=== PATIENT | female | born 1970 | race Caucasian/White ===

== ENCOUNTER 2017-10-21 08:02 | Observation (INO) | payer OTHER ==
[2017-10-21] MEDS ORDERED: NS 0.9% 1000 ML* 1,000 ML IV ONE (08:37)
[2017-10-21] MEDS ORDERED: Aspirin Low Dose CHEW TAB* 81 MG ONE (08:38)
[2017-10-21] MEDS ORDERED: Aspirin Low Dose CHEW TAB* 81 MG PO ONE ×2 (08:42)
[2017-10-21 08:55] LABS: ABS Basophils 0 10^3/ul (0-0.2); ABS Eosinophils 0.1 10^3/ul (0-0.6); ABS Lymphocytes 1.8 10^3/ul (1.0-4.8); ABS Monocytes 0.3 10^3/ul (0-0.8); ABS Neutrophils 3.5 10^3/ul (1.5-7.7); ABS Nucleated RBC 0 10^3/ul; Eosinophil % 1.2 % (0-6); Hematocrit 40 % (35-47); Hemoglobin 13.4 g/dl (12.0-16.0); Lymphocyte % 31.9 % (25-47); Mean Corpuscular HGB Conc 34 g/dl (31-36); Mean Corpuscular Hemoglobin 31 pg (27-31); Mean Corpuscular Volume 90 fL (80-97); Mean Platelet Volume 9 um3 (7.4-10.4); Nucleated Red Blood Cells % 0; Platelet Count 247 10^3/ul (150-450); Red Blood Count 4.37 10^6/ul (4.0-5.4); Red Cell Distribution Width 13 % (10.5-15); White Blood Count 5.7 10^3/ul (3.5-10.8)
[2017-10-21] MEDS ORDERED: Ibuprofen TAB* 400 MG PO ONE (09:09)
[2017-10-21 09:13] LABS: EGFR Non-African American 64.1 (>60)
[2017-10-21 09:16] LABS: INR 0.9 (0.77-1.02)
--- NOTE | 2017-10-21 09:47 | RAD ---
Indication: Chest pain. Single frontal view of the chest performed at 0858 hours was reviewed. Comparison is made with previous exam dated November 07, 2014. No mediastinal shift is noted. Heart is of normal size and configuration. Lung bridges appear clear. IMPRESSION: NO ACTIVE CARDIOPULMONARY DISEASE IS NOTED.
[2017-10-21] MEDS ORDERED: Ondansetron INJ* 2 MG/ML VIAL IV PRN (12:20)
[2017-10-21] MEDS ORDERED: Acetaminophen TAB* 325 MG PO PRN (12:20)
--- NOTE | 2017-10-21 12:56 | ED ---
Elizabeth Gerber Julia, scribed for Abel Frias on 10/21/17 at 1031 . HPI Chest Pain - HPI Summary HPI Summary: This patient is a 46 year old F presenting to [facility] accompanied by her mother with a chief complaint of intermittent left sided chest pain since 10/16/17 lasting between a few seconds to 30 minutes. Patient denies N/V/D, dizziness, SOB, and lower extremity edema. The patient rates the pain 5/10 in severity. Symptoms aggravated by movement. Symptoms unchanged by exertion. Patient denies a cardiac history. Her father had an HI at 58. - History of Current Complaint Chief Complaint: EDChestPainROMI Time Seen by Provider: 10/21/17 10:16 Hx Obtained From: Patient Onset/Duration: Started Days Ago Timing: Intermittent, Lasting Seconds, Lasting Minutes Pain Intensity: 5 Pain Scale Used: 0-10 Numeric Chest Pain Location: Left Anterior Aggravating Factor(s): Movement Associated Signs and Symptoms: Positive: Negative. Negative: Shortness of Breath, Lightheadedness, Diaphoresis, Nausea, Vomiting, Edema - Allergy/Home Medications Allergies/Adverse Reactions: Allergies Allergy/AdvReac Type Severity Reaction Status Date / Time Sulfa (Sulfonamide Allergy Hives Verified 10/21/17 08:11 Antibiotics) Home Medications: Home Medications ALPRAZolam TAB* [Xanax TAB*] 0.125 mg PO BID 10/21/17 [History Confirmed ] Latanoprost 0.005%* [Xalatan 0.005%*] 1 drop BOTH EYES QPM 10/21/17 [History Confirmed 10/21/17] Nadolol TAB* [Corgard TAB*] 60 mg PO DAILY 10/21/17 [History Confirmed 10/21/17] Topiramate TAB(*) [Topamax 100 mg tab] 100 mg PO BEDTIME 10/21/17 [History Confirmed 10/21/17] busPIRone TAB* [Buspar TAB *] 15 mg PO BID 10/21/17 [History Confirmed 10/21/17] PMH/Surg Hx/FS Hx/Imm Hx Endocrine/Hematology History: Denies: Hx Diabetes, Hx Thyroid Disease Cardiovascular History: Denies: Hx Hypertension Respiratory History: Denies: Hx Asthma, Hx Chronic Obstructive Pulmonary Disease (COPD), Other Respiratory Problems/Disorders GI History: Denies: Hx Ulcer Neurological History: Reports: Hx Migraine - Cancer History Hx Chemotherapy: No Hx Radiation Therapy: No Infectious Disease History: No Infectious Disease History: Denies: Hx Hepatitis, Hx Human Immunodeficiency Virus (HIV), Traveled Outside the [place] in Last 30 Days - Family History Known Family History: Positive: Cardiac Disease - HI - father at age 58 Family History: FHx of breast CA - grandmother - Social History Alcohol Use: None Substance Use Type: Reports: None Smoking Status (MU): Never Smoked Tobacco Review of Systems Negative: Skin Diaphoresis Positive: Chest Pain Negative: Shortness Of Breath Negative: Vomiting, Diarrhea, Nausea Negative: Edema All Other Systems Reviewed And Are Negative: Yes Physical Exam - Summary Physical Exam Summary: Appearance: Well appearing, no pain distress Skin: warm, dry, reflects adequate perfusion Head/face: normal Eyes: EOMI, [place] ENT: normal Neck: supple, non-tender Respiratory: CTA, breath sounds present Cardiovascular: RRR, pulses symmetrical Abdomen: non-tender, soft Bowel: present Musculoskeletal: normal, strength/ROM intact Neuro: normal, sensory motor intact, A&Ox3 Triage Information Reviewed: Yes Vital Signs On Initial Exam: Initial Vitals Temp Pulse Resp BP Pulse Ox 98.1 F 72 16 132/86 97 10/21/17 08:03 10/21/17 08:03 10/21/17 08:03 10/21/17 08:03 10/21/17 08:03 Vital Signs Reviewed: Yes Diagnostics - Vital Signs Vital Signs Temp Pulse Resp BP Pulse Ox 10/21/17 09:00 100 10/21/17 08:30 69 17 125/82 99 10/21/17 08:26 9 10/21/17 08:25 108/82 10/21/17 08:03 98.1 F 72 16 132/86 97 - Laboratory Lab Results: Lab Results 10/21/17 10/21/17 10/21/17 Range/Units 08:46 08:46 08:46 WBC 5.7 (3.5-10.8) 10^3/ul RBC 4.37 (4.0-5.4) 10^6/ul Hgb 13.4 (12.0-16.0) g/dl Hct 40 (35-47) % MCV 90 (80-97) fL MCH 31 (27-31) pg MCHC 34 (31-36) g/dl RDW 13 (10.5-15) % Plt Count 247 (150-450) 10^3/ul MPV 9 (7.4-10.4) um3 Neut % (Auto) 61.4 (38-83) % Lymph % (Auto) 31.9 (25-47) % Pitt % (Auto) 4.9 (1-9) % Eos % (Auto) 1.2 (0-6) % Baso % (Auto) 0.6 (0-2) % Absolute Neuts (auto) 3.5 (1.5-7.7) 10^3/ul Absolute Lymphs (auto) 1.8 (1.0-4.8) 10^3/ul Absolute Monos (auto) 0.3 (0-0.8) 10^3/ul Absolute Eos (auto) 0.1 (0-0.6) 10^3/ul Absolute Basos (auto) 0 (0-0.2) 10^3/ul Absolute Nucleated RBC 0 10^3/ul Nucleated RBC % 0 INR (Anticoag Therapy) 0.90 (0.77-1.02) APTT 34.1 (26.0-36.3) seconds D-Dimer, Quantitative 218 (Less Than 230) ng/mL Sodium (133-145) mmol/L Potassium (3.5-5.0) mmol/L Chloride (101-111) mmol/L Carbon Dioxide (22-32) mmol/L Anion Gap (2-11) mmol/L BUN (6-24) mg/dL Creatinine (0.51-0.95) mg/dL Est GFR ( Amer) (>60) Est GFR (Non-Af Amer) (>60) BUN/Creatinine Ratio (8-20) Glucose (70-100) mg/dL Lactic Acid (0.5-2.0) mmol/L Calcium (8.6-10.3) mg/dL Magnesium (1.9-2.7) mg/dL Total Bilirubin (0.2-1.0) mg/dL AST (13-39) U/L ALT (7-52) U/L Alkaline Phosphatase (34-104) U/L Total Creatine Kinase (10-223) U/L CK-MB (CK-2) (0.6-6.3) ng/mL Troponin I (<0.04) ng/mL C-Reactive Protein (< 5.00) mg/L B-Natriuretic Peptide 34 ( - 100) pg/mL Total Protein (6.4-8.9) g/dL Albumin (3.2-5.2) g/dL Globulin (2-4) g/dL Albumin/Globulin Ratio (1-3) Lipase (11.0-82.0) U/L TSH (0.34-5.60) mcIU/mL Beta HCG, Quant mIU/mL 10/21/17 10/21/17 Range/Units 08:46 08:46 WBC (3.5-10.8) 10^3/ul RBC (4.0-5.4) 10^6/ul Hgb (12.0-16.0) g/dl Hct (35-47) % MCV (80-97) fL MCH (27-31) pg MCHC (31-36) g/dl RDW (10.5-15) % Plt Count (150-450) 10^3/ul MPV (7.4-10.4) um3 Neut % (Auto) (38-83) % Lymph % (Auto) (25-47) % Pitt % (Auto) (1-9) % Eos % (Auto) (0-6) % Baso % (Auto) (0-2) % Absolute Neuts (auto) (1.5-7.7) 10^3/ul Absolute Lymphs (auto) (1.0-4.8) 10^3/ul Absolute Monos (auto) (0-0.8) 10^3/ul Absolute Eos (auto) (0-0.6) 10^3/ul Absolute Basos (auto) (0-0.2) 10^3/ul Absolute Nucleated RBC 10^3/ul Nucleated RBC % INR (Anticoag Therapy) (0.77-1.02) APTT (26.0-36.3) seconds D-Dimer, Quantitative (Less Than 230) ng/mL Sodium 137 (133-145) mmol/L Potassium 3.9 (3.5-5.0) mmol/L Chloride 109 (101-111) mmol/L Carbon Dioxide 23 (22-32) mmol/L Anion Gap 5 (2-11) mmol/L BUN 18 (6-24) mg/dL Creatinine 0.94 (0.51-0.95) mg/dL Est GFR ( Amer) 82.4 (>60) Est GFR (Non-Af Amer) 64.1 (>60) BUN/Creatinine Ratio 19.1 (8-20) Glucose 110 H (70-100) mg/dL Lactic Acid 0.4 L (0.5-2.0) mmol/L Calcium 9.3 (8.6-10.3) mg/dL Magnesium 2.2 (1.9-2.7) mg/dL Total Bilirubin 0.40 (0.2-1.0) mg/dL AST 11 L (13-39) U/L ALT 7 (7-52) U/L Alkaline Phosphatase 67 (34-104) U/L Total Creatine Kinase 43 (10-223) U/L CK-MB (CK-2) 0.6 (0.6-6.3) ng/mL Troponin I 0.00 (<0.04) ng/mL C-Reactive Protein < 1.00 (< 5.00) mg/L B-Natriuretic Peptide ( - 100) pg/mL Total Protein 7.2 (6.4-8.9) g/dL Albumin 4.1 (3.2-5.2) g/dL Globulin 3.1 (2-4) g/dL Albumin/Globulin Ratio 1.3 (1-3) Lipase 23 (11.0-82.0) U/L TSH 3.06 (0.34-5.60) mcIU/mL Beta HCG, Quant 2.74 mIU/mL Result Diagrams: 10/21/17 08:46 10/21/17 08:46 Lab Statement: Any lab studies that have been ordered have been reviewed, and results considered in the medical decision making process. - Radiology CXR Radiology Interpretation Completed By: Radiologist - NO ACTIVE CARDIOPULMONARY DISEASE IS NOTED. ED Physician has reivewed this report. - EKG 0811 Cardiac Rate: NL EKG Rhythm: Sinus Rhythm Ectopy: None Chest Pain Course/Dx - Course Course Of Treatment: Patient presents with intermittent left sided chest pain since 10/16/17 lasting between a few seconds to 30 minutes. Her father had an HI at 58. CXR, EKG, and blood work was obtained. Patient is given Tylenol, Xanax , Zofran, Topomax, Xalahtan, and 2 doeses of ASA 324mg, 1 dose of 161mg ASA. Patient is admitted to Dr. Oliveros after visting patient in the ED. - Chest Pain Differential Diagnosis/HQI/PQRI: Acute HI, ACS, Angina, CHF, Chest Wall, Lower Respiratory Infection - Diagnoses Provider Diagnoses: Chest pain, rule out acute myocardial infarction - Provider Notifications Discussed Care Of Patient With: Kamran Oliveros Time Discussed With Above Provider: 11:30 Instructed by Provider To: MD Will See In ED Discharge - Discharge Plan Condition: Good Disposition: ADMITTED TO [facility] The documentation as recorded by the Elizabeth olmstead Julia accurately reflects the service I personally performed and the decisions made by Rodriguez more Emmanuel.
--- NOTE | 2017-10-21 17:51 | HP ---
CC: Dr. Sophia Wheat.* HISTORY AND PHYSICAL: DATE OF ADMISSION: 10/21/17 PRIMARY CARE PROVIDER: Dr. Sophia Wheat. ATTENDING PHYSICIAN WHILE IN THE HOSPITAL: Warren Oliveros MD * (report dictated by Fransico Ceja NP). HISTORY OF PRESENTING ILLNESS: Mrs. Dejesus is a 46-year-old female patient. She carries a history of migraines, IBS and question of glaucoma. She comes into our ER today stating that the last week she has been having intermittent chest discomfort at times lasting seconds and at times lasting up towards 30 minutes, really with no associated shortness of breath, nausea or diaphoresis. She states that she cannot correlate the symptoms with exertion and she also states that the symptoms have not increased in intensity or frequency but she was concerned because her father did at the age of 58 with an HI, so she wanted to be evaluated. She states that she also does admit to having a significant amount of stress of late, which may be contributing but she nonetheless decided to be evaluated today. She denies having any recent trips or travel. No leg pain, calf tenderness. No chest tightness with taking a deep breath. No shortness of breath. She states that there is no association with food or correlation with food making the pain worse or better in her chest. She states that her concern was that of the chest pain today, she came in, was evaluated. Because of her risk factors, we were asked to evaluate for admission. PAST MEDICAL HISTORY: Significant for: 1. Migraines. 2. IBS. 3. Glaucoma. PAST SURGICAL HISTORY: Denies. HOME MEDICATIONS: Include: 1. BuSpar 15 mg p.o. b.i.d. 2. Corgard 60 mg daily. 3. Latanoprost 1 drop both eyes q.p.m. 4. Topamax 100 mg daily. 5. Xanax 0.125 mg p.o. b.i.d. ALLERGIES: Her allergy to medications are with SULFA DRUGS. FAMILY HISTORY: Mother has a history of hyperlipidemia and hypertension. Father had a history of HI at the age of 58. SOCIAL HISTORY: She does not smoke, does not drink. She works at [employer]. Surrogate decision maker is her mother. REVIEW OF SYSTEMS: There is no documented fever. She denied having any significant weight change. There was no ear discharge. She denies having any rhinorrhea. No sore throat. No thyroid enlargement. There was a chest pain from her HPI. There is no orthopnea, no nocturnal dyspnea. There was no abdominal pain. There was no nausea, no vomiting. There was no dysuria, no frequency. No seizure. No loss of conscious. No pruritus and no skin ulcerations. Review of 14 systems completed, all others negative PHYSICAL EXAMINATION GENERAL: At this time, Mrs. Dejesus is a 46-year-old female patient. She appears to be well nourished, well developed. She is sitting in the ED stretcher. She does not appear to be in any acute distress. VITAL SIGNS: Blood pressure 114/73, pulse 61, respirations 11, O2 sat 100%, temperature 98.1. HEENT: Head, atraumatic, normocephalic. Eyes, EOMs are intact. Sclerae anicteric, not pale. NECK: Supple. Throat, oral mucosa appears to be moist. No oropharyngeal erythema. LUNGS: Clear to auscultation. No wheezes, rales, or rhonchi. HEART: Sounds S1, S2. Regular rate and rhythm. No murmur rubs or gallops. ABDOMEN: Soft, flat, nontender. Bowel sounds are present. EXTREMITIES: Pulses 2+ throughout. Able to move all 4 extremities with 5/5 strength. NEUROLOGICAL: The patient is awake, alert and is oriented x3. Tongue midline. Felt Dyeing Machine Tender equal. No gross focal deficits. SKIN: Intact. DIAGNOSTIC STUDIES/LAB DATA: WBC 5.7, RBC 4.37, hemoglobin 13.4, hematocrit 40 , platelet count of 247. INR 0.9, PTT at 34.1, D-dimer 218. Sodium 137, potassium 3.9, chloride 109, bicarb of 23, BUN 18, creatinine 0.94, glucose 110 , lactic 1.4, calcium 9.3. Total mag 2.2, total bili 0.4, AST 11, ALT 7, alk phos 67, CK 43, CK- MB 0.6, troponin 0, repeat troponin 0. CRP less than 1. BNP of 34. Beta-hCG 2.74, albumin 4.1, lipase 23. The patient did have a chest x-ray obtained today. It showed no active cardiopulmonary disease was noted. She had an EKG obtained today as well. EKG showed a sinus rhythm, rate of 63. No ST elevations or T-wave inversions. Compared to the previous EKG, it appears to be similar. Old medical records were reviewed. ASSESSMENT AND PLAN: Mrs. Dejesus is a 46-year-old female patient coming into the ED today with complaints of a chest discomfort. The patient was evaluated today by myself and should be admitted under observation status for: 1. Chest pain. She does have risk factors with her family history. My plan at this point will be to go head and cycle her troponins, get lipid panel, A1c in the morning, EKG in the morning as well and we will also cycle 1 more troponin and try to get a stress test done tomorrow. We will place her on telemetry overnight. I have added on baby aspirin for the patient. 2. History of migraine. Continue meds as prescribed. 3. Irritable bowel syndrome. Continue meds as prescribed. 4. Glaucoma. Continue her eyedrops. 5. DVT prophylaxis. Placed on SCDs. 6. Code status. Full code. 7. Fluids, electrolytes, and nutrition. She can have a heart healthy diet and n.p.o. after midnight. TIME SPENT: Time spent on admission was 60 minutes, greater than half the time was spent [id number] with the patient obtaining my history and physical, other half time was spent going over the plan of care with the patient and implementing the plan of care. I did discuss the plan of care with my attending doctor, Dr. Oliveros, who is in agreement. FRANSICO CEJA NP [id number]/[facility] #: [id number] MADALYN
[2017-10-21] MEDS ORDERED: Latanoprost 0.005%* 2.5 ml BTL BOTH EYES SCH (18:00)
[2017-10-21] MEDS ORDERED: Topiramate TAB(*) 100 MG PO SCH (21:00)
[2017-10-21] MEDS ORDERED: Nadolol TAB* 40 MG PO SCH (21:00)
[2017-10-21] MEDS: ALPRAZolam TAB* 0.25 MG PO SCH (21:17)
[2017-10-21] MEDS: busPIRone TAB* 15 MG PO SCH (21:18)
[2017-10-22 07:04] LABS: ABS Basophils 0 10^3/ul (0-0.2); ABS Eosinophils 0.1 10^3/ul (0-0.6); ABS Lymphocytes 1.9 10^3/ul (1.0-4.8); ABS Monocytes 0.3 10^3/ul (0-0.8); ABS Neutrophils 3.8 10^3/ul (1.5-7.7); ABS Nucleated RBC 0 10^3/ul; Eosinophil % 1.6 % (0-6); Hematocrit 43 % (35-47); Hemoglobin 14.4 g/dl (12.0-16.0); Lymphocyte % 30.5 % (25-47); Mean Corpuscular HGB Conc 34 g/dl (31-36); Mean Corpuscular Hemoglobin 31 pg (27-31); Mean Corpuscular Volume 91 fL (80-97); Mean Platelet Volume 9 um3 (7.4-10.4); Nucleated Red Blood Cells % 0; Platelet Count 270 10^3/ul (150-450); Red Blood Count 4.71 10^6/ul (4.0-5.4); Red Cell Distribution Width 13 % (10.5-15); White Blood Count 6.1 10^3/ul (3.5-10.8)
[2017-10-22 07:11] LABS: INR 0.97 (0.77-1.02)
[2017-10-22 08:01] VITALS: BP 114/80
[2017-10-22] MEDS: busPIRone TAB* 15 MG PO SCH (08:38)
[2017-10-22] MEDS: ALPRAZolam TAB* 0.25 MG PO SCH (08:38)
[2017-10-22] MEDS ORDERED: Aspirin EC Low Dose* 81 MG TAB.EC PO SCH (09:00)
[2017-10-22] MEDS ORDERED: Aminophylline IV* 25 MG/ML 10 ML VIAL ONE (10:55)
[2017-10-22] MEDS ORDERED: Regadenoson* 0.4 MG/5 ML SYRINGE ONE (10:55)
--- NOTE | 2017-10-22 12:45 | RAD ---
Edited for charges. INDICATION: Chest pain COMPARISON: None TECHNIQUE: SPECT imaging was performed. Rest images were acquired following the intravenous injection of 10.15 millicuries of technetium 99m tetrofosmin at 620 hours. At 1144 hours stress images were acquired following the intravenous administration of 25.2 millicuries of technetium 99m tetrofosmin. A target heart rate of 148 beats per minutes was achieved. FINDINGS: There are no defects of the stress-induced or fixed nature. The cardiac chamber size is normal. There are no wall motion abnormalities. The ejection fraction is calculated at 75% during stress. IMPRESSION: No scintigraphic evidence of ischemia or infarction. ASSESSMENT: Low risk Based on imaging criteria from ACC/AHA 2002 Guideline Update for the Management of Patients With Chronic Stable Angina Table 23. Noninvasive Risk Stratification. MTDD
--- NOTE | 2017-10-23 12:04 | DS ---
CC: Dr. Rao; Dr. Wheat DISCHARGE SUMMARY: DATE OF ADMISSION: 10/21/17 DATE OF DISCHARGE: 10/22/17 PRIMARY CARE PROVIDER: Dr. Sophia Wheat. ATTENDING PHYSICIAN: Dr. Adrian Rao. HOSPITAL COURSE: This is a very pleasant 46-year-old female patient who [facility] with a complaint of several days of intermittent chest pain, some times last for few minute s up to 30 minutes reportedly. The patient does have family history of coronary artery disease; navarrete gladis, she has never been diagnosed with this herself. The patient's past medical history is significa nt for depression and migraines only. Based on her history, it was determined that she should stay f or a stress test. The patient underwent that test today, which showed low suspicion for acute mendez ry syndrome. The patient agreed for discharge and follow up with her primary care doctor. Of signif icant note, troponins were trended, they were negative. She had no acute changes on her laboratory f indings and rest of her workup was negative. Lipids as well perhaps could be optimized. Her triglyce rides were 188, LDL 130, and HDL 37.5. Other than that, there were no acute findings. PHYSICAL EXAMINATION: The patient is awake and alert, in no acute distress. Vital signs are current ly, blood pressure 114/80, heart rate 65, respiratory rate 16, satting at 100% on room air with tempe rature 97.9. HEENT: The patient is atraumatic, normocephalic. PERRLA with nonicteric sclerae. Nec k is supple and nontender. No JVD noted. No carotid bruits auscultated. No thyromegaly appreciated . Cardiovascular: S1, S2 are present. No murmurs, gallops, or rubs. Rate and rhythm are regular. Lungs are clear bilaterally to auscultation with no wheezing, rhonchi, or rales. Abdomen is soft, no ntender, and nondistended. Positive bowel sounds in all 4 quadrants. No organomegaly appreciated. G U was deferred. Musculoskeletal: There is no clubbing, no cyanosis, and no edema. She has +2 dista l pulses palpable. Gross motor and sensation are intact. Neurologic: She is grossly intact with no focal deficits. Psychiatric: She is cooperative and appropriate. DIAGNOSTIC STUDIES/LAB DATA: WBC 6.1, RBC is 4.71, hemoglobin 14.4, hematocrit 43, platelets 270. S odium 139, potassium 4.0, chloride 110, CO2 22, BUN 15, creatinine 0.85, GFR is 72. A1c is 5.6. Lac tic acid 0.4. Troponins were negative x3 at 0.00. Fasting lipid profiles as mentioned above. Again , the patient underwent cardiac stress test today which showed low risk for acute coronary syndrome. MEDICATIONS AT THE TIME OF DISCHARGE: Include: 1. BuSpar 15 mg p.o. 3 times a day. 2. Nadolol 60 mg daily. 3. Latanoprost eye drops 0.005% one drop to each eye in the evening. 4. Topiramate 100 mg at bedtime. 5. Xanax 0.125 mg p.o. 2 times daily. DISCHARGE INSTRUCTIONS: The patient was discharged in stable condition under the care of family. Jarred wang questions were answered. The patient stated her understanding of her followups at the time of disc harge, which is with Dr. Sophia Wheat in the next week. Also discussed potential for GI source or ch est wall pain, costochondritis is possible reasons for her chest wall pain. She will discuss this fu rther with Dr. Wheat at her next visit. RUSSELL FRANCIS, TEAGAN [id number]/[facility] #: [id number]
== END 2017-10-22 14:23 | disposition home or self-care (01) ==
LOC: ED 08:02 → MEDTELE 12:00
PROVIDERS: ADMIT Internal Medicine; ATTEND Internal Medicine
DX: R07.9 Chest pain, unspecified (principal); G43.909 Migraine, unspecified, not intractable, without status migrainosus; K58.9 Irritable bowel syndrome, unspecified; H40.9 Unspecified glaucoma; Z79.899 Other long term (current) drug therapy; Z88.2 Allergy status to sulfonamides
CPT/HCPCS: 36415; 71045; 78452; 80048; 80053; 80061; 82550; 82553; 83036; 83605; 83690; 83735; 83880; 84443; 84484; 84702; 85025; 85379; 85610; 85730; 86140; 93005; 93017; 96360; 99284; A9270-GY; A9502; G0378; J0280; J2785

== ENCOUNTER 2019-06-06 12:59 | Emergency (ER) | payer OTHER ==
[2019-06-06 13:17] LABS: ABS Eosinophils 0.1 10^3/ul (0-0.6); ABS Lymphocytes 1.8 10^3/ul (1.0-4.8); ABS Monocytes 0.3 10^3/ul (0-0.8); ABS Neutrophils 4.1 10^3/ul (1.5-7.7); Eosinophil % 1.9 %; Hematocrit 41 % (35-47); Hemoglobin 13.9 g/dL (12.0-16.0); Lymphocyte % 28.4 %; Mean Corpuscular HGB Conc 34 g/dL (31-36); Mean Corpuscular Hemoglobin 31 pg (27-31); Mean Corpuscular Volume 92 fL (80-97); Mean Platelet Volume 8.9 fL (7.4-10.4); Nucleated Red Blood Cells % 0.1; Platelet Count 252 10^3/uL (150-450); Red Blood Count 4.45 10^6 /uL (3.70-4.87); Red Cell Distribution Width 13 % (10-15); White Blood Count 6.5 10^3/uL (3.5-10.8)
[2019-06-06 13:23] LABS: INR 1.01 (0.82-1.09)
--- NOTE | 2019-06-06 13:39 | ED ---
HPI Chest Pain - HPI Summary HPI Summary: The patient is a 48 y/o F presenting to [facility] with a chief complaint of intermittent episodes of mid-sternal and left anterior chest pain over the last week. The pain is sharp but sometimes dull and does not radiate. It lasts for a few minutes at a time. She denies any shortness of breath, nausea, dizziness, or diaphoresis. She reports that she has experienced a similar presentation before, but she was admitted and had a negative stress test. She is not currently experiencing any pain, but she did have the pain this morning rated 6/ 10 in severity. There are no aggravating or alleviating factors. LNMP: 3 weeks ago. PMHx: none. FHx: fatal [place] father age 58, HTN. Nonsmoker, no EtOH, no substance use. Medications reviewed. Allergies noted. - History of Current Complaint Chief Complaint: EDChestPainROMI Time Seen by Provider: 06/06/19 13:11 Hx Obtained From: Patient Hx Last Menstrual Period: 12/04/2013 Onset/Duration: Started Days Ago - about a week, Resolved Timing: Intermittent, Lasting Minutes Initial Severity: Moderate Current Severity: Mild Pain Intensity: 6 Pain Scale Used: 0-10 Numeric Chest Pain Location: Mid Sternal, Left Anterior Chest Pain Radiates: No Character: Dull/Aching, Sharp/Stabbing Aggravating Factor(s): Nothing Alleviating Factor(s): Nothing Associated Signs and Symptoms: Negative: Dizziness, Shortness of Breath, Diaphoresis, Nausea - Additional Pertinent History Primary Care Physician: [id number] - Allergy/Home Medications Allergies/Adverse Reactions: Allergies Allergy/AdvReac Type Severity Reaction Status Date / Time Sulfa (Sulfonamide Allergy Hives Verified 10/21/17 08:11 Antibiotics) PMH/Surg Hx/FS Hx/Imm Hx Endocrine/Hematology History: Denies: Hx Diabetes, Hx Thyroid Disease Cardiovascular History: Denies: Hx Hypercholesterolemia, Hx Hypertension Respiratory History: Denies: Hx Asthma, Hx Chronic Obstructive Pulmonary Disease (COPD), Other Respiratory Problems/Disorders GI History: Denies: Hx Ulcer Sensory History: Reports: Hx Contacts or Glasses Denies: Hx Hearing Aid Opthamlomology History: Reports: Hx Contacts or Glasses Neurological History: Reports: Hx Migraine - Cancer History Hx Chemotherapy: No Hx Radiation Therapy: No - Surgical History Surgical History: None Surgery Procedure, Year, and Place: none Infectious Disease History: No Infectious Disease History: Denies: Hx Hepatitis, Hx Human Immunodeficiency Virus (HIV), Traveled Outside the [place] in Last 30 Days - Family History Known Family History: Positive: Cardiac Disease - [place] - father at age 58, Hypertension Family History: FHx of breast [place] - grandmother - Social History Alcohol Use: None Hx Substance Use: No Substance Use Type: Reports: None Hx Tobacco Use: No Smoking Status (MU): Never Smoked Tobacco Review of Systems Negative: Skin Diaphoresis Positive: Chest Pain - mid-sternal, left anterior Negative: Shortness Of Breath Negative: Nausea Neurological: Other - Negative: dizziness. All Other Systems Reviewed And Are Negative: Yes Physical Exam - Summary Physical Exam Summary: VITAL SIGNS: Reviewed. GENERAL: Patient is a well-developed and nourished female who is lying comfortable in the stretcher. Patient is not in any acute respiratory distress. HEAD AND FACE: No signs of trauma. No ecchymosis, hematomas or skull depressions. No sinus tenderness. EYES: PERRLA, EOMI x 2, No injected conjunctiva, no nystagmus. EARS: Hearing grossly intact. Ear canals and tympanic membranes are within normal limits. MOUTH: Oropharynx within normal limits. NECK: Supple, trachea is midline, no adenopathy, no JVD, no carotid bruit, no c- spine tenderness, neck with full ROM. CHEST: Symmetric, no tenderness at palpation. LUNGS: Clear to auscultation bilaterally. No wheezing or crackles. CVS: Regular rate and rhythm, S1 and S2 present, no murmurs or gallops appreciated. ABDOMEN: Soft, non-tender. No signs of distention. No rebound, no guarding, and no masses palpated. Bowel sounds are normal. EXTREMITIES: FROM in all major joints, no edema, no cyanosis or clubbing. NEURO: Alert and oriented x 3. No acute neurological deficits. Speech is normal and follows commands. SKIN: Dry and warm. Triage Information Reviewed: Yes Vital Signs On Initial Exam: Initial Vitals Temp Pulse Resp BP Pulse Ox 98.2 F 61 16 142/89 97 06/06/19 13:00 06/06/19 13:00 06/06/19 13:00 06/06/19 13:00 06/06/19 13:00 Vital Signs Reviewed: Yes Procedures - Sedation Patient Received Moderate/Deep Sedation with Procedure: No Diagnostics - Vital Signs Vital Signs Temp Pulse Resp BP Pulse Ox 06/06/19 13:00 98.2 F 61 16 142/89 97 - Laboratory Result Diagrams: 06/06/19 13:11 06/06/19 13:11 Lab Statement: Any lab studies that have been ordered have been reviewed, and results considered in the medical decision making process. - EKG 1306 Cardiac Rate: Bradycardia - 55 bpm EKG Rhythm: Sinus Bradycardia Summary of EKG Findings: EKG at 1306 reveals sinus bradycardia at [address] elevations. ED physician has reviewed and interpreted this EKG. Re-Evaluation - Re-Evaluation First Eval Re-Evaluation Time: 17:00 Change: Improved Comment: She is asymptomatic in the ED. We discussed all results and plan for discharge home. Chest Pain Course/Dx - Course Assessment/Plan: Patient is a 48 y/o F with a chief complaint of intermittent episodes of sharp and dull mid-sternal and left anterior chest pain that does not radiate and is not accompanied by any other symptoms onset about a week ago. Blood work without any significant abnormality except for chloride 112, glucose 111, AST 12. Two troponins 4 hours apart are 0.00. EKG is a sinus bradycardia at [address] elevations. The heart 1; therefore, no suspicion for an acute coronary syndrome. The patient continues to be asymptomatic in the ED, and she has no other complaints. The patient is not hypoxic or tachycardic, and the criteria for PE is equal to 0. Patient reports that all symptoms have resolved. Because the patient has no significant comorbidities and no family history of cardiovascular disease at his age the patient will be discharged home with follow up of PMD. I discussed all the findings and test results with the patient. Patient was instructed to return to the emergency room immediately if any of the symptoms return or worsen. Patient understands and agrees. Plan of care was discussed with the patient and patient understands and agrees. All questions were answered at patient satisfaction. There were no further complaints or concerns. PE before discharge : CVS: S1 and S2 present. No murmurs appreciated. Abdominal exam before discharge: Soft, non-tender. No signs of distention. No rebound, no guarding, and no masses palpated. Bowel sounds are normal. Patient is alert and oriented x 3. Patient is hemodynamically stable. - Diagnoses Provider Diagnoses: Atypical chest pain Discharge ED - Sign-Out/Discharge Documenting (check all that apply): Patient Departure - Patient will be discharged home. - Discharge Plan Condition: Stable Disposition: HOME Patient Education Materials: Chest Pain (DC) Referrals: Sophia Wheat MD [Primary Care Provider] - 3 Days Additional Instructions: Follow up with your primary care provider in 2-3 days. Return to the emergency department for any new or worsening symptoms. - Billing Disposition and Condition Condition: STABLE Disposition: Home - Attestation Statements Document Initiated by Phu: Yes Documenting Scribe: Shala Veras Provider For Whom Phu is Documenting (Include Credential): Dr. Chivo Camargo MD Scribe Attestation: Shala Gerber scribed for Dr. Chivo Camargo MD on 06/07/19 at 1846. Scribe Documentation Reviewed: Yes Provider Attestation: The documentation as recorded by the Shala olmstead accurately reflects the service I personally performed and the decisions made by me, Dr. Chivo Camargo MD Status of Scribe Document: Viewed
[2019-06-06 13:46] LABS: Albumin 4.4 g/dL (3.2-5.2); Albumin/Globulin Ratio 1.6 (1-3); Calcium 9.2 mg/dL (8.6-10.3); EGFR African American 77.9 (>60); EGFR Non-African American 64.3 (>60); Globulin 2.7 g/dL (2-4); Potassium 3.9 mmol/L (3.5-5.0); Total Bilirubin 0.5 mg/dL (0.2-1.0); Total Protein 7.1 g/dL (6.4-8.9)
--- OUTSIDE RECORDS SUMMARY | 2019-06-06 14:00 | XMS REPORT | Continuity of Care Document ---
:1970 External Reference #:[id number] Author Name Jaci Garcia M.D. (transmitted by agent of provider Alondra Gil) Address [address], [place] [address] Care Team Providers Name Role Phone Sophia Wheat MD - Family Care Team Information Php Mysql Developer [phone] Medicine Problems Active Problems Provider Date Anxiety state Jaci Garcia M.D. Onset: 04/25/2015 Chronic tension-type headache Jaci Garcia M.D. Onset: 04/25/2015 Chronic Migraine Without Aura Without Mention Jaci Garcia M.D. Onset: Intractable Social History Type Date Description Comments Sex Unknown ETOH Use Denies alcohol use Tobacco Use Start: Unknown Patient has never smoked Smoking Status Reviewed: 06/03/19 Patient has never smoked Allergies, Adverse Reactions, Alerts Active Allergies Reaction Severity Comments Date Sulfa Hives 08/02/2012 Medications Active Medications SIG Qnty Indications Ordering Provider Date Topiramate 1 by mouth at 60tabs G43.709 Jaci Garcia, 02/02/2019 25mg night x 14 days, M.D. Tablets then 2 by mouth at night (in addition to 100mg tablets) Sumatriptan take 1 by mouth 12tabs G43.709 Jaci Garcia, 04/14/2016 Succinate as need for M.D. 100mg migraine, december Tablets repeat after 2 hours, maximum 2 tablets in 24 hours, maximum 2 days a week. Nadolol take 3 by mouth 270tabs Jaci Garcia, 12/09/2012 20mg Tablets every day M.D. Topamax 1 tab by mouth 90tabs Cecil Kang, 100mg Tablets every night at N.P. bedtime Ibuprofen 1 cap po prn Unknown 200mg Capsules Xanax one by mouth up Unknown 0.25mg Tablets to three times daily as needed for anxiety Buspirone HCL 1 po bid Kaden Kramer, 7.5mg MD Tablets Vitamin D3 High 1 by mouth every Unknown Potency day 1000Unit Capsules Latanoprost one drop both Unknown 0.005% eyes twice daily Solution Immunizations Description No Information Available Vital Signs Date Vital Result Comment 06/03/2019 4:08pm Height 67 inches 5'7" Weight 195.00 lb Heart Rate 70 /min BP Systolic 122 mmHg BP Diastolic 80 mmHg BMI (Body Mass Index) 30.5 kg/m2 02/02/2019 8:20am Height 67 inches 5'7" Weight 199.25 lb Heart Rate 68 /min BP Systolic Sitting 108 mmHg BP Diastolic Sitting 82 mmHg Respiratory Rate 16 /min BMI (Body Mass Index) 31.2 kg/m2 Results Description No Information Available Procedures Description No Information Available Medical Devices Description No Information Available Encounters Type Date Location Provider Dx Diagnosis Office Visit 02/02/[facility] Jaci Garcia, G43.709 Chronic 8:30a M.D. migraine w/o aura, not intractable, w/o stat migr Assessments Date Code Description Provider 06/03/2019 G43.709 Chronic migraine without aura, not Jaci Garcia M.D. intractable, without stat 06/03/2019 H53.8 Other visual disturbances Jaci Garcia M.D. 02/02/2019 G43.709 Chronic migraine without aura, not Jaci Garcia M.D. intractable, without stat Plan of Treatment Future Appointment(s):09/09/2019 3:00 pm - Jaci Garcia M.D. at [facility]06/03/2019 - Jaci Garcia M.D.G43.709 Chronic migraine without aura, not intractable, without statFollow up:3 monthsRecommendations:try increasing to 150mg topiramate, if you are not getting better, or have side effects, please call and we will look into monoclonal antibody treatment for migraines.H53.8 Other visual disturbancesRecommendations:watch for any associated symptoms. If worst headache of life, loss of vision, numbness or weakness of arms, legs, face, change in speech, call 911 Watch to see if it goes away with increase in topiramate. We will have low threshold to image your brain and vessels. Functional Status Description No Information Available Mental Status Description No Information Available Referrals Description No Information Available
[2019-06-06 17:18] VITALS: BP 139/70
== END 2019-06-06 17:05 | disposition home or self-care (01) ==
LOC: ED 12:59
DX: R07.89 Other chest pain (principal); Z79.899 Other long term (current) drug therapy; Z88.2 Allergy status to sulfonamides
CPT/HCPCS: 36415; 80053; 84484; 85025; 85610; 93005; 99282